=== PATIENT | female | born 1985 | race Caucasian/White ===

== ENCOUNTER → 2016-11-14 | Outpatient (CLI) | payer OTHER ==
[2016-11-14 15:21] LABS: MANUAL MICROSCOPIC REQUIRED? NO; REVIEW REQ? NO; URINE APPEARANCE CLEAR (CLEAR); URINE BILIRUBIN NEG (NEG); URINE COLOR YELLOW; URINE NITRITE NEG (NEG); UROBILINOGEN NEG (NEG)
== END | disposition home or self-care (01) ==
LOC: C.LABSPEC 13:56
PROVIDERS: ATTEND Obstetrics & Gynecology
DX: Z34.01 Encounter for supervision of normal first pregnancy, first trimester (principal)

== ENCOUNTER → 2016-11-24 | Outpatient (CLI) | payer OTHER ==
[2016-11-26 14:31] LABS: CHLAMYDIA TRACH RNA*** NOT DETECTED (NOT DETECTED); GC (NEIS GONORRHOEAE)RNA** NOT DETECTED (NOT DETECTED)
== END | disposition home or self-care (01) ==
LOC: C.LABSPEC 15:49
PROVIDERS: ATTEND Obstetrics & Gynecology
DX: Z34.01 Encounter for supervision of normal first pregnancy, first trimester (principal)

== ENCOUNTER → 2016-11-24 | Outpatient (CLI) | payer OTHER ==
[2016-11-24 14:45] LABS: BASO % 0.1 %; BASO ABS # 0.01 K/uL (0-0.2); COMPLETE YES; EOS % 0.5 %; HEMATOCRIT 35.6 % (37-47); IG% 0.2 %; LYMPH % 16.8 %; LYMPH ABS # 1.39 K/uL (1.2-3.4); MEAN CELL VOLUME 79.3 fL (80-100); MEAN CORPUSCULAR HEMOGLOBIN 27.2 pg (25-34); MEAN CORPUSCULAR HGB CONC 34.3 g/dl (32-36); MEAN PLATELET VOLUME 9.4 fL (7.4-10.4); MONO % 7.5 %; NEUT % 74.9 %; PLATELET COUNT 333 K/uL (130-400); RED BLOOD COUNT 4.49 M/uL (4.2-5.4); WHITE BLOOD COUNT 8.27 K/uL (4.8-10.8)
== END | disposition home or self-care (01) ==
LOC: C.LAB1850 13:11
PROVIDERS: ATTEND Obstetrics & Gynecology
DX: Z34.01 Encounter for supervision of normal first pregnancy, first trimester (principal)

== ENCOUNTER → 2016-11-24 | Outpatient (CLI) | payer OTHER | END | disposition home or self-care (01) | LOC: C.PAPS 17:01 | PROVIDERS: ATTEND Obstetrics & Gynecology | DX: Z34.01 Encounter for supervision of normal first pregnancy, first trimester (principal) ==

== ENCOUNTER → 2017-01-20 | Outpatient (CLI) | payer OTHER ==
[2017-01-20 12:56] LABS: THYROID STIMULATING HORMONE 0.762 uIu/ml (0.300-4.500)
== END | disposition home or self-care (01) ==
LOC: C.LAB1850 10:56
PROVIDERS: ATTEND Obstetrics & Gynecology
DX: Z34.02 Encounter for supervision of normal first pregnancy, second trimester (principal); L65.9 Nonscarring hair loss, unspecified

== ENCOUNTER → 2017-04-16 | Outpatient (CLI) | payer OTHER ==
[2017-04-16 13:08] LABS: HEMATOCRIT 31.9 % (37-47)
[2017-04-16 13:14] LABS: GTGD 50 Grams
[2017-04-16 13:58] LABS: URINE APPEARANCE CLEAR (CLEAR); URINE BILIRUBIN NEG (NEG); URINE COLOR YELLOW; URINE EPITHELIAL CELL AUTO >30 /lpf (0-5); URINE NITRITE NEG (NEG); URINE PH 6.5 (4.5-7.5); URINE SPECIFIC GRAVITY 1.018 (1.000-1.030); UROBILINOGEN NEG (NEG)
[2017-04-16 14:26] LABS: MANUAL MICROSCOPIC REQUIRED? NO; REVIEW REQ? NO
== END | disposition home or self-care (01) ==
LOC: C.LAB1850 10:47
PROVIDERS: ATTEND Obstetrics & Gynecology
DX: Z34.03 Encounter for supervision of normal first pregnancy, third trimester (principal)

== ENCOUNTER 2017-06-21 17:30 | Inpatient (IN) | payer SELFPAY ==
[~2017-06-21] VITALS: Ht 165.1 cm; Wt 75.5 kg
[2017-06-21] MEDS ORDERED: LACTATED RINGER'S 1000ML 1,000 ML IV PRN (18:24)
[2017-06-21] MEDS ORDERED: PRENTAB26 PO (18:26)
[2017-06-21] MEDS ORDERED: FERR1TAB23 (18:26)
[2017-06-21 18:27] VITALS: Ht 165.1 cm; Wt 75.5 kg
[2017-06-21] MEDS ORDERED: MISOPROSTOL 25 MCG TAB PV ONE (18:30)
[2017-06-21] MEDS ORDERED: MISOPROSTOL 25 MCG TAB ONE (18:37)
[2017-06-21 18:50] LABS: HEMATOCRIT 34.8 % (37-47); HEMOGLOBIN 11.9 g/dL (12.0-16.0); MEAN CELL VOLUME 83.7 fL (80-100); MEAN CORPUSCULAR HEMOGLOBIN 28.6 pg (25-34); MEAN CORPUSCULAR HGB CONC 34.2 g/dl (32-36); MEAN PLATELET VOLUME 10.3 fL (7.4-10.4); PLATELET COUNT 207 K/uL (130-400); RED CELL DISTRIBUTION WIDTH CV 16.2 % (11.5-14.5); RED CELL DISTRIBUTION WIDTH SD 49.3 fL (36.4-46.3); WHITE BLOOD COUNT 12.98 K/uL (4.8-10.8)
[2017-06-21] MEDS ORDERED: BUTORPHANOL TARTRATE 1 MG/ML VIAL ONE (22:32)
[2017-06-21] MEDS: LACTATED RINGER'S 1000ML 1,000 ML IV SCH (22:39)
[2017-06-21] MEDS ORDERED: BUTORPHANOL TARTRATE 1 MG/ML VIAL IV PRN (22:45)
[2017-06-22] MEDS ORDERED: EpHEDrine SULFATE INJ 50 MG/ML AMP ONE (00:17)
[2017-06-22] MEDS ORDERED: BUPIVACAINE 0.25% 30 ML VIAL ONE (00:17)
[2017-06-22] MEDS ORDERED: FENTANYL CITRATE INJ 50 MCG/1 ML 2 ML VIAL ONE (00:17)
[2017-06-22] MEDS ORDERED: FENTANYL 2MCG/ML ROPIV 1.25MG/ML 100ML BAG EPI ONE (00:18)
[2017-06-22] MEDS: LACTATED RINGER'S 1000ML 1,000 ML IV SCH ×2 (01:03→10:22)
[2017-06-22] MEDS ORDERED: LACTATED RINGER'S 1000ML 500 ML IV PRN ×2 (01:23→08:34)
[2017-06-22] MEDS ORDERED: NALOXONE HCL INJ 1 MG in SODIUM CHLORIDE 0.9% 1000ML 1,000 ML IV PRN (01:23)
[2017-06-22] MEDS ORDERED: EpHEDrine SULFATE INJ 50 MG/ML AMP IV PRN (01:30)
[2017-06-22] MEDS ORDERED: NALOXONE HCL INJ 0.4 MG/1 ML VIAL/CARP IV PRN (01:30)
[2017-06-22] MEDS ORDERED: DiphenhydrAMINE HCL 50 MG/ML VIAL IV PRN (01:30)
[2017-06-22] MEDS ORDERED: NALBUPHINE HCL INJ 10 MG/ML AMP IV PRN (01:30)
[2017-06-22] MEDS ORDERED: ONDANSETRON INJ 2 MG/ML 2 ML VIAL IV PRN (01:30)
[2017-06-22] MEDS ORDERED: OXYTOCIN 30 UNITS/500ML NSS IV ONE (06:55)
[2017-06-22] MEDS: FENTANYL 2MCG/ML ROPIV 1.25MG/ML 100ML BAG EPI PRN ×2 (06:59→07:05)
[2017-06-22] MEDS ORDERED: SODIUM CHLORIDE 0.65% NA SOLN 45 ML (OCEAN) ONE (08:06)
[2017-06-22] MEDS ORDERED: OXYTOCIN 30 UNITS/500ML NSS IV PRN ×2 (08:45→12:15)
[2017-06-22] MEDS ORDERED: BENZOCAINE 20% AER SPR 82.5 GM CAN EXT PRN (12:15)
[2017-06-22] MEDS ORDERED: SUPERCREAM 0.870 % 15GM JAR EXT PRN (12:15)
[2017-06-22] MEDS ORDERED: LANOLIN OINT EXT PRN (12:15)
[2017-06-22] MEDS ORDERED: OXYCODONE/ACETAMINOPHEN 5-325 TAB PO PRN (12:15)
[2017-06-22] MEDS ORDERED: ACETAMINOPHEN 325 MG TAB PO PRN (12:15)
--- NOTE | 2017-06-22 12:52 | Anesthesia Procedure Note ---
Anesthesia Epidural Removal Nt Date & Time Jun 22, 2017 at 12:51 Vital Signs Pain Intensity: 3.0 Notes Mental Status: alert / awake / arousable, participated in evaluation Nausea / Vomiting: adequately controlled Pain: adequately controlled Airway Patency, RR, SpO2: stable & adequate BP & HR: stable & adequate Hydration State: stable & adequate Neuraxial Anesthesia: was administered Anesthetic Complications: no major complications apparent, pt satisfied with anesthetic care Epidural: removed without complications, with tip intact
--- NOTE | 2017-06-22 13:58 | DELIVERY SUMMARY ---
DATE OF OPERATION: 06/22/2017 The patient is a 32-year-old 1, para 0 white female EDC of 07/04/2017 who represented with rupture of membranes at 0300 hours on June 22. She received one dose of Cytotec. She then had an epidural analgesia which was effective. She progressed to fully dilated and after pushing with poor maternal effort with the vertex on the perineum, vacuum was applied after the bladder had been emptied and through one push, the vertex was delivered. The posterior arm was then presenting and then that was delivered followed by the rest of the baby who was crying vigorously. The infant was placed on the mother's abdomen for further warming and evaluation. Cord was clamped and cut. The placenta was expressed intact with a 3-vessel cord. A right sulcal tear was repaired with 3-0 Chromic. A second degree perineal laceration was repaired with 3-0 Chromic in the usual fashion. Estimated blood loss was 450 mL. Mother and were doing well after the delivery. I attest to the content of the Intraoperative Record and any orders documented therein. Any exception s are noted below.
[2017-06-22] MEDS: IBUPROFEN 600 MG TAB PO PRN ×2 (14:46→22:47)
[2017-06-22 15:15] VITALS: BP 90/57; PULSE 98; TEMP 36.9
[2017-06-22] MEDS: DOCUSATE SODIUM 100 MG CAP PO SCH (20:00)
[2017-06-22 20:15] VITALS: BP 100/69; PULSE 102; TEMP 36.4
[2017-06-22 23:25] VITALS: BP 95/61; PULSE 106; TEMP 37.1
[2017-06-23 04:00] VITALS: BP 100/66; PULSE 108; TEMP 36.9
[2017-06-23 07:23] LABS: HEMATOCRIT 29.1 % (37-47); HEMOGLOBIN 9.9 g/dL (12.0-16.0)
--- NOTE | 2017-06-23 07:47 | Progress Note ---
Subjective Jun 23, 2017. Subjective conversation w/ patient, physical exam Ambulation: ambulating normally Voiding: no voiding problems Passing Gas: Yes Diet Tolerance: Regular Diet Lochia: Moderate Feeding Type: Bottle Feeding Review of Systems Constitutional: No fever, No chills, No sweats, No weight loss, No weakness, No fatigue, No problem reported Breast: No see HPI, No breast lump, No change in shape, No nipple discharge, No breast pain, No problem reported Female : No see HPI, No dysuria, No urinary frequency, No hematuria, No incontinence, No abnormal vaginal bleeding, No vaginal discharge, No problem reported Objective Vital Signs Date Time Temp Pulse Resp B/P (MAP) Pulse Ox O2 Delivery O2 Flow Rate FiO2 06/23/17 04:00 36.9 108 18 100/66 (77) Room Air 06/22/17 23:25 Room Air 06/22/17 23:25 37.1 106 18 95/61 (72) Room Air 06/22/17 20:15 36.4 102 18 100/69 (79) Room Air 06/22/17 15:15 Room Air 06/22/17 15:15 36.9 98 18 90/57 (68) Room Air Physical Exam General Appearance: WELL-APPEARING, NO APPARENT DISTRESS Abdomen: non tender, soft Fundus: Firm, Non-Tender, Relation to Umbilicus (1 below U) Extremities: no calf tenderness Laboratory Results Last 24 Hours Test 06/23/17 06:54 Hemoglobin 9.9 g/dL Hematocrit 29.1 % Assessment and Plan Day#: 1 Continue Routine Care: stable course continue current care plan.
[2017-06-23] MEDS: DOCUSATE SODIUM 100 MG CAP PO SCH ×2 (08:13→19:37)
[2017-06-23] MEDS: PRENATAL VITAMIN TAB PO SCH (08:13)
[2017-06-23 08:34] VITALS: BP 107/71; PULSE 108; TEMP 36.6; O2SAT 98
[2017-06-23 08:51] VITALS: O2SAT 98
[2017-06-23] MEDS: FERROUS SULFATE 325 MG TAB PO SCH (10:54)
[2017-06-23] MEDS: IBUPROFEN 600 MG TAB PO PRN ×2 (10:56→19:36)
[2017-06-23 15:40] VITALS: BP 97/62; PULSE 101; TEMP 37.1
[2017-06-23] MEDS ORDERED: BISACODYL 5 MG TABEC PO SCH (20:00)
[2017-06-24 00:15] VITALS: BP 121/71; PULSE 94; TEMP 36.7
[2017-06-24 08:45] VITALS: BP 123/74; PULSE 99; TEMP 36.7; O2SAT 98
[2017-06-24] MEDS: FERROUS SULFATE 325 MG TAB PO SCH (09:24)
[2017-06-24] MEDS: DOCUSATE SODIUM 100 MG CAP PO SCH (09:24)
[2017-06-24] MEDS: PRENATAL VITAMIN TAB PO SCH (09:25)
--- NOTE | 2017-06-24 09:59 | Discharge Instructions ---
Discharge Instructions Date of Service Jun 24, 2017. Admission Reason for Admission: Check Rupture Discharge Discharge Diagnosis / Problem: after delivery Discharge Goals Goal(s): Routine recovery after delivery Medications Continue Dispensed Medications: supercream, dermaplast, tucks, lansinoh Activity Recommendations Activity Limitations: as noted below ACTIVITY RECOMMENDATIONS: * Gradual return to full activity over the next 2-3 weeks. * No lifting - nothing heavier than baby over the next 2-3 weeks. * Do not engage in vigorous exercise, sexual activity or sports until cleared by your physician. * Do not drive or operate any motorized equipment until cleared by your physician. * You may shower/bathe daily. MEDICATIONS: For discomfort or pain, you may use Acetaminophen (Tylenol), Ibuprofen (Advil), or Naproxen (Aleve) following the package directions. For constipation you may use Colace following the package directions. BREAST CARE: If you are not breast feeding: * Wear a supportive bra 24 hours a day for one to two weeks. * Avoid stimulating your breasts and nipples as much as possible during the first few weeks after delivery. * When taking a shower, have the warm water hit your back, not breasts. * When your breasts feel full, apply ice packs. Usually three to four times a day helps ease the discomfort. * Take a mild pain medication (Tylenol / Motrin) when you are uncomfortable. If breast feeding: * Use breast milk to lubricate nipples. Lansinoh cream may be used for sore nipples. You do not need to remove cream prior to breast feeding. If using a different brand of cream, check the label for directions regarding removal of cream prior to nursing. * Wear a supportive bra. * If having problems with breasts or breast feeding, call a testing consultant or your health care provider. EPISIOTOMY CARE: After delivery, if you have an episiotomy (stitches), the following steps will ease discomfort and aid healing. * For the first 24 hours after delivery, place ice packs next to your episiotomy to help reduce swelling. * After the first 24 hour-period, sitz baths, either portable or in the tub, are suggested. A shower with a shower arm sprayed over the episiotomy may be comforting. * Virginie care should be done after each voiding and bowel movement. Squirt warm water from a plastic bottle over the perineum (region of the body between the anus and urinary opening) and pat dry. * Use Dermoplast to ease discomfort. Shake container. Circle directly over the episiotomy. Place a Tucks on a clean sanitary pad next to your episiotomy. SPECIAL CARE INSTRUCTIONS: When you are discharged from the hospital, it is important for you to follow the instructions listed below: * During the first week at home, you should be able to care for yourself and your baby. In addition, the usual light household activities are encouraged. * Limit your activities to the way you feel. Do not try to clean the house or move furniture. Be sensible. * If you actively engage in sports and have done so up until the time of your delivery, you may resume these activities as soon as you feel able. This may take up to one month or even longer. Use good judgment. * Continue to take your vitamins for at least six weeks after the of your baby. * Your diet need not be limited unless you were on a special diet before your delivery. Breast-feeding mothers need around 2500 calories per day and at least 64-80 ounces of fluid per day (8 to 10 glasses). * You should eat foods from the four major food groups. Crash diets or fad diets are to be avoided. Eating lean meats, fresh fruits and vegetables, low-fat dairy products, high fiber foods and a regular exercise program, will help you get back to your pre- weight without putting your health at risk. * Constipation is sometimes a problem after delivery. Take a mild laxative as needed. If breast feeding, Milk of Magnesia is acceptable to use. You may use a suppository or Fleets enema if no episiotomy. * A daily shower or tub bath is suggested. Be sure to thoroughly and gently dry the perineum. * A bloody vaginal discharge will usually continue until around four weeks post . A small amount of bleeding may continue for as long as six weeks. Vaginal discharge changes from the bright red bleeding after delivery to pink then brownish and finally yellowish-pink before becoming white and disappearing. * Bleeding may increase with activity. Your first period may come in 4-8 weeks. If you are breast feeding, your period may be delayed even longer. * [place] (sex) can begin whenever both you and your partner feel comfortable and do not have any form of genital infection. It is recommended that you wait at least six weeks for internal and external healing to occur. If you have questions, please talk to your health care practitioner. A condom should be used to prevent infection and . * Foreplay, gentle intercourse and lubrication is very important the first several times to prevent pain. A water-based lubricant such as K-Y jelly or Astroglide may be used. * If you have RH negative blood and your baby is RH positive, you will receive RHOGAM by injection prior to discharge. The nurse will give you a card to keep with you that has the date and place that you received RHOGAM after delivery. * During your care, you had a Rubella screen done to check for the presence of rubella antibodies in your blood. If your test was negative, you will receive a Rubella vaccine prior to discharge. This vaccine may cause a fever, soreness at the injection site and flu-like symptoms. If these symptoms persist, notify your health care practitioner. is not advised for one month after a Rubella vaccine. * Verbalizes understanding of car seat law as reviewed with patient nursing. * Car Seat hand-out given and reviewed with patient by nursing. * Shaken baby information reviewed with patient by nursing. Call you doctor if: * Heavy bleeding (saturating several pads an hour) or passing clots the size of your fist. * A fever >101 degrees F (38.3 degrees C) on two occasions four hours apart and /or chills. * Unusual pain in the pelvic or vaginal areas. * "Baby Blues" lasting longer than two weeks. If you have any questions or concerns, call your health care practitioner at . FOLLOW UP VISIT: * Please call the office at to schedule a 6 week examination. It is important you keep this appointment. It is important for you to make arrangements for either yearly or twice yearly check-ups thereafter. . Current Hospital Diet Patient's current hospital diet: Vegetarian Diet Discharge Diet Recommended Diet: Regular Diet Pending Studies Studies pending at discharge: no Medical Emergencies . Who to Call and When: Medical Emergencies: If at any time you feel your situation is an emergency, please call 911 immediately. . Non-Emergent Contact Non-Emergency issues call your: Hotbed Lever Operator . . "Provider Documentation" section prepared by Zahra Alexander. .
--- NOTE | 2017-06-24 11:10 | OB/GYN Progress Note ---
[facility] Progress Note Date of Service Jun 24, 2017. Subjective conversation w/ patient, physical exam Ambulation: ambulating normally Voiding: no voiding problems Passing Gas: Yes Diet Tolerance: Regular Diet Lochia: Moderate Feeding Type: Breast Feeding Pain: controlled Review of Systems Constitutional: No problem reported Respiratory: No problem reported Cardiac: No problem reported Breast: No problem reported Abdomen: No problem reported Female : No problem reported Objective Vital Signs Date Time Temp Pulse Resp B/P (MAP) Pulse Ox O2 Delivery O2 Flow Rate FiO2 06/24/17 08:45 36.7 99 16 123/74 (90) 98 Room Air 06/24/17 08:45 Room Air 06/24/17 00:15 36.7 94 16 121/71 (88) 06/23/17 15:40 37.1 101 18 97/62 (74) Room Air 06/23/17 15:40 Room Air Physical Exam General Appearance: WELL-APPEARING, NO APPARENT DISTRESS Respiratory/Chest: no respiratory distress Cardiovascular: regular rate, rhythm Abdomen: non tender, soft Fundus: Firm Extremities: normal inspection Assessment and Plan Post- Day Number: 2 Continue Routine Care: PPD#2 doing well. Discharge instructions discussed. When I went into room for rounding, Patient was sleeping in bed with baby sleeping upon her chest. I discussed with patient that this is not safe for baby - that if mom is sleepy, she needs to put the baby into bassinet. Patient voices understanding. I asked patient's RN to also reinforce this safe sleep education with her.
[2017-06-24] MEDS: IBUPROFEN 600 MG TAB PO PRN (13:47)
[2017-06-24 14:10] VITALS: BP_DIAS 74; PULSE 99; TEMP 36.7
--- NOTE | 2017-06-28 16:12 | DISCHARGE SUMMARY ---
HISTORY OF PRESENT ILLNESS: The patient is a 32-year-old 1, para 0 white female who presented with rupture of membranes at approximately 0300 hours on June 22. She received Cytotec to stimulate labor. She then progressed to full dilation under epidural analgesia. There was a poor maternal effort with pushing because the patient was complaining of severe back pain when pushing. She managed to bring the vertex to the perineum. The vacuum was applied and the was delivered easily with 1 pull on the vacuum. The rest of the infant delivered easily and was placed on mother's abdomen for further attention and stimulation. The patient had an uncomplicated course. She was eating regular food on her later that day, ambulating without difficulty, voiding without difficulty. She was sent home in good condition with the usual postop instructions.
== END 2017-06-24 14:10 | disposition home or self-care (01) | DRG 775 ==
LOC: C.LD 17:30 → C.OPB 17:30 → C.LD 06-22 12:25 → C.OBG 06-22 15:59
PROVIDERS: ADMIT Obstetrics & Gynecology; ATTEND Obstetrics & Gynecology
PROC: 10D07Z6 Extraction of Products of Conception, Vacuum, Via Natural or Artificial Opening (ICD-10-PCS; principal; 2017-06-22)
DX: O70.1 Second degree perineal laceration during delivery (principal); Z3A.38 38 weeks gestation of pregnancy; Z37.0 Single live birth

== ENCOUNTER 2019-04-01 16:46 | Inpatient (IN) ==
[2019-04-01] MEDS ORDERED: ONDANSETRON INJ 2 MG/ML 2 ML VIAL IV PRN ×2 (17:25→18:46)
[2019-04-01] MEDS ORDERED: OXYTOCIN 30 UNITS/500 ML BAG IV PRN ×3 (17:25→22:08)
[2019-04-01] MEDS ORDERED: ACETAMINOPHEN 325 MG TAB PO PRN ×2 (17:25→22:08)
[2019-04-01] MEDS ORDERED: ALUMINUM/MAGNESIUM/SIMETH (MAALOX MAX) 30 ML UDC PO PRN (17:25)
--- NOTE | 2019-04-01 17:35 | Labor Progress Brief Note ---
Date of Service April 01, 2019 Subjective Review of Systems All systems reviewed & are unremarkable except as noted in HPI & below Assessment & Plan (1) Amniotic fluid leaking: Admit, augment labor as water broke at 0700 per patient and no painful contractions have started yet. Epidural on request. Present on Admission?: Yes Physical Exam Constitutional: WD/WN, vitals as above Eyes: PERRL, conjunctivae normal, anicteric sclerae ENMT: external ear and nose normal, oropharynx normal Neck: supple Respiratory: normal respiratory effort and able to speak in complete sent ences; no respiratory distress Cardiovascular: Rate/Rhythm: regular rate and regular rhythm Gastrointestinal (Abdomen): Gravid / AGA, nontender Musculoskeletal: no cyanosis or clubbing, extremities motor strength 5/5 Skin: no rashes, warm and dry Neurologic: patellar DTR's 2+ bilat, sensation intact Psychiatric: A+Ox3, euthymic affect Genitourinary: Speculum/Bimanual Exam: no vaginal lesions, no vaginal bleeding and uterus nontender OB Exam Abdomen: + vertex, + estimated weight (7) and + regular contractions (not appreciated by patient) Manual OB Exam: + cervical dilation 4 cm, + cervical effacement 50%, + station -2 and + amniotic fluid (+pool on sse) clear, nitrazine positive and ferning present OB Exam Monitor Tracing: + external FHT monitor used, + external uterine monitor used and + category I Lymphatic: no cervical or axillary lymphadenopathy Results & Data Vital Signs (Past 12 Hours) Vital Signs Temp Pulse Resp BP 04/01/19 17:15 20 04/01/19 17:03 98.8 F 20 04/01/19 16:54 97 H 115/64
[2019-04-01] MEDS: LACTATED RINGER'S 1,000 ML IV PRN ×2 (17:55→18:48)
[2019-04-01 17:56] LABS: Hemoglobin 11.5 g/dL (12.0-16.0); Mean Corpuscular Hemoglobin 27.1 pg (25-34); Mean Corpuscular Volume 82.4 fL (80-100); Mean Platelet Volume 10.5 fL (7.4-10.4); Platelet Count 267 K/uL (130-400); RDW Coefficient of Variation 15.1 % (11.5-14.5); Red Blood Count 4.25 M/uL (4.2-5.4); White Blood Count 13.31 K/uL (4.8-10.8)
[2019-04-01 18:01] LABS: Mean Corpuscular Hgb Conc 32.9 g/dL (32-36)
[2019-04-01] MEDS ORDERED: fentaNYL citrate 100 MCG/2 ML VIAL ONE (18:12)
[2019-04-01] MEDS ORDERED: fentaNYL 2MCG/ML ROPIV 1.25MG/ML 100 ML BAG EPI ONE (18:13)
[2019-04-01] MEDS ORDERED: BUPIVACAINE 0.25% 30 ML VIAL ONE (18:13)
[2019-04-01] MEDS ORDERED: ePHEDrine sulfate 50 MG/ML AMP ONE (18:13)
[2019-04-01 18:23] LABS: Albumin Level 2.6 gm/dl (3.4-5.0); BUN Creatinine Ratio 11.6 (10-20); Calcium 9.1 mg/dl (8.5-10.1); Creatinine Clr Calc Pharmacy 175.7 ml/min; Est GFR (African American) 148.3; Potassium 3.8 mmol/L (3.5-5.1)
[2019-04-01 18:29] LABS: Albumin Globulin Ratio 0.6 (0.9-2); Bilirubin,Total 0.2 mg/dl (0.2-1); Globulin 4.5 gm/dl (2.5-4.0); Total Protein 7.1 gm/dl (6.4-8.2)
[2019-04-01] MEDS ORDERED: fentaNYL 2MCG/ML ROPIV 1.25MG/ML 100 ML BAG EPI PRN (18:46)
[2019-04-01] MEDS ORDERED: NALOXONE HCL 0.4 MG/1 ML VIAL/CARP IV PRN (18:46)
[2019-04-01] MEDS ORDERED: NALBUPHINE HCL INJ 10 MG/ML AMP IV PRN (18:46)
[2019-04-01] MEDS ORDERED: NALOXONE HCL 1 MG in SODIUM CHLORIDE 0.9% 1000ML 1,000 ML IV PRN (18:46)
[2019-04-01] MEDS ORDERED: ePHEDrine sulfate 50 MG/ML AMP IV PRN (18:46)
[2019-04-01] MEDS ORDERED: DiphenhydrAMINE HCL 50 MG/ML VIAL IV PRN (18:46)
--- NOTE | 2019-04-01 18:48 | Anesthesiology Consultation ---
Date of Service April 01, 2019 Assessment & Plan (1) Encounter for pre-operative examination: Chart Review Chart Review: Patient NOT seen in Pre Admission Testing and Acceptable Risk for Labor Epidural Consults Requested none History Height/Weight Height: 5 ft 6.93 in Weight: 74.389 kg Allergies Allergy/AdvReac Type Severity Reaction Status Date / Time No Known Drug Allergies Allergy Verified 03/31/19 13:02 Medications Home Medications Medication Instructions Recorded Confirmed Last Taken prenat.vits,hiren,yge-fqiy-avxsf 1 tab PO DAILY 11/19/18 04/01/19 1 Day Ago ~03/31/19 Active Medications Generic Name Dose Route Start Last Admin Trade Name Freq PRN Reason Stop Dose Admin Lactated Ringer's 1,000 mls @ 125 mls/hr 04/01/19 18:00 04/01/19 18:48 Lr IV 04/03/19 17:59 125 mls/hr .Q8H PRN Administration L&D Protocol Protocol Past Medical History Medical History Amniotic fluid leaking Anxiety Gastritis Normal labor and delivery (Acute) Supervision of elderly multigravida (Acute) Exercise / Class Metabolic Activity II 4-5 Yardwork/Stairs/Walk up hill Past Family History Family History Father Type B viral hepatitis Past Surgical History Surgical History No pertinent past surgical history Past Anesthesia History No Hx of Anesthesia Complications and No Family Hx of Anesthesia Complications History of PONV No Hx of PONV and No Hx of Motion Sickness Social History Smoking Status: Never smoker Do You Dip or Chew Tobacco: No Hx Alcohol Use: No Hx Substance Use: No substance use type: does not use Physical Exam Vital Signs Last Vital Signs Temp 37.1 C 04/01/19 17:03 Pulse 84 04/01/19 18:42 Resp 18 04/01/19 18:00 BP 115/64 04/01/19 16:54 Pulse Ox 100 04/01/19 18:42 Testing Laboratory Results 04/01/19 17:41 04/01/19 17:41
[2019-04-01] MEDS ORDERED: Nursing to Pharmacy Communication ONE (21:01)
--- NOTE | 2019-04-01 22:01 | Delivery Summary ---
Vaginal Delivery Summary Date of Service April 01, 2019 Vaginal Delivery Summary DIAGNOSES: 1. Alaniz intrauterine at 40wk gestation. 2. PROM and IOL. 3. Group B Streptococcus Neg. PROCEDURE: Spontaneous vaginal delivery without laceration. SURGEON: Tran Alcantara MD. RIDE ASSEMBLY SUPERVISOR: None. ESTIMATED BLOOD LOSS: 300 mL. COMPLICATIONS: None. PLACENTA: Spontaneous and intact with a 3-vessel cord. DISPOSITION: Stable to labor and delivery. DESCRIPTION: The patient pushed well and brought the head to . The 's head was allowed to deliver with contraction force and no further active pushing, with the perineum protected during this time. The shoulders delivered easily with a maternal pushing effort. There was a tight nuchal cord reduced at the perineum. The Right shoulder was anterior and the left hand was compound at delivery alongside the left cheek. The shoulders and body delivered without any difficulty, and the was placed on the maternal abdomen. It was vigorous and moving all extremities, and making respiratory efforts. The cord was doubly clamped by the MD and then cut by the FOB. The placenta delivered spontaneously and was noted to be intact and with a 3VC. The cervix, vagina and perineum were examined and were found to be without defect requiring repair. The fundus was firm and lochia minimal immediately after delivery.
[2019-04-01] MEDS ORDERED: SUPERCREAM 0.870% 15 GM JAR EXT PRN (22:08)
[2019-04-01] MEDS ORDERED: OXYCODONE/ACETAMINOPHEN 5mg/325mg TAB PO PRN (22:08)
[2019-04-01] MEDS ORDERED: DIPHTHERIA/TETANUS/PERTUSSIS 0.5 ML SYR/VIAL IM ONE (22:08)
[2019-04-01] MEDS ORDERED: HYDROCORTISONE ACETATE 25 MG SUPP PR PRN (22:08)
[2019-04-01] MEDS ORDERED: LACTATED RINGER'S 1,000 ML IV SCH (22:08)
[2019-04-01] MEDS ORDERED: BENZOCAINE 20% AER SPR 82.5 GM CAN EXT PRN (22:08)
--- NOTE | 2019-04-01 23:17 | Anesthesia Procedure Note ---
Date of Service April 01, 2019 Anesthesia Post Epidural Note Vital Signs Vital Signs: Temp Pulse Resp BP Pulse Ox 36.9 C 99 H 18 111/61 100 04/01/19 21:51 04/01/19 23:08 04/01/19 22:36 04/01/19 23:08 04/01/19 21:48 Notes Mental Status: alert / awake / arousable and participated in evaluation Patient Amnestic to Procedure: No Nausea / Vomiting: adequately controlled Pain: adequately controlled Airway Patency, RR, SpO2: stable & adequate BP & HR: stable & adequate Hydration State: stable & adequate Neuraxial Anesthesia: was administered and sensory block is resolving Anesthetic Complications: no major complications apparent and Pt Satisfied with anesthetic care Epidural: Removed without complications and With tip intact
[2019-04-02] MEDS: IBUPROFEN 600 MG TAB PO PRN ×2 (01:38→05:48)
--- NOTE | 2019-04-02 06:40 | Obstetrical Progress Note ---
Date of Service <Rebel Goel MD - Last Filed: 04/02/19 06:40> April 02, 2019 Assessment & Plan <Rebel Goel MD - Last Filed: 04/02/19 06:40> (1) : PPD#1 doing well, ambulating well, tolerating meals continue routine care until discharge after discharge will have follow-up in 6 weeks Subjective <Rebel Goel MD - Last Filed: 04/02/19 06:40> Ms. Ansley Pedersen is a 34 y/o female ; PPD #1 following spontaneous vaginal delivery at 40 weeks; doing well this morning; having minimal abdominal cramping/pain; voiding well; tolerating meals overnight; and able to ambulate some; some persistent spotting with intermittent improvement this morning. Review of Systems Constitutional: denies fever; chills; sweats; headache Respiratory: denies shortness of breath, difficulty breathing Cardiac: denies chest pain; palpitations; chest pressure Breast: denies breast pain : denies dysuria Physical Exam <Rebel Goel MD - Last Filed: 04/02/19 06:40> General: alert; oriented; no acute distress Cardiac: RRR; no m/g/r Respiratory: CTAB a/p; no wheezes/rales/rhonchi; no increased work of breathing; symmetrical chest rise; no respiratory distress Abdomen: soft; NT/ND; bowel sounds positive Uterus: uterine fundus firm; palpable 1cm below umbilicus Lower extrem: no lower extremity edema or swelling; no deep calf pain; Ruy's sign negative b/l Results & Data <Rebel Goel MD - Last Filed: 04/02/19 06:40> Vital Signs (Past 12 Hours) Vital Signs Temp Pulse Resp BP Pulse Ox 04/02/19 04:30 36.9 C 77 20 110/77 98 04/02/19 00:08 109 H 140/63 04/01/19 23:53 113 H 94/61 L 04/01/19 23:38 100 H 18 117/63 04/01/19 23:08 99 H 18 111/61 04/01/19 22:53 93 H 107/60 04/01/19 22:38 100 H 109/62 04/01/19 22:36 18 12/06/19 22:23 96 H 106/75 12/06/19 22:21 20 04/01/19 22:08 100 H 103/65 04/01/19 22:06 18 04/01/19 21:51 36.9 C 94 H 20 124/56 L 04/01/19 21:48 92 H 100 04/01/19 21:45 95 H 132/78 04/01/19 21:43 118 H 98 04/01/19 21:41 102 H 91 04/01/19 21:38 73 100 04/01/19 21:33 109 H 98 04/01/19 21:28 73 99 04/01/19 21:27 86 91 04/01/19 21:23 77 100 04/01/19 21:22 89 86 L 04/01/19 21:17 97 H 100 04/01/19 21:15 86 109/65 04/01/19 21:12 76 100 04/01/19 21:07 76 100 04/01/19 21:04 77 109/57 L 04/01/19 21:02 74 100 04/01/19 21:00 20 04/01/19 20:57 80 100 04/01/19 20:52 74 97 04/01/19 20:47 80 100 04/01/19 20:45 76 115/80 04/01/19 20:42 86 97 04/01/19 20:37 92 H 97 04/01/19 20:32 80 97 04/01/19 20:30 82 20 121/77 04/01/19 20:27 85 98 04/01/19 20:22 78 97 04/01/19 20:17 74 100 04/01/19 20:15 81 116/65 04/01/19 20:12 97 H 99 04/01/19 20:07 80 99 04/01/19 20:02 80 111/61 99 04/01/19 19:57 81 98 04/01/19 19:52 77 99 04/01/19 19:47 85 100 04/01/19 19:46 83 109/61 04/01/19 19:42 74 99 04/01/19 19:37 79 99 04/01/19 19:32 82 99 04/01/19 19:30 20 04/01/19 19:29 75 107/60 04/01/19 19:27 93 H 98 04/01/19 19:22 87 98 04/01/19 19:17 89 99 04/01/19 19:15 18 04/01/19 19:14 80 120/69 04/01/19 19:12 93 H 115/67 99 04/01/19 19:10 88 118/68 04/01/19 19:08 103 H 123/67 04/01/19 19:07 95 H 99 04/01/19 19:06 91 H 133/63 04/01/19 19:02 92 H 100 04/01/19 19:01 89 117/70 04/01/19 19:00 84 117/63 04/01/19 18:57 98 H 100 04/01/19 18:52 108 H 100 04/01/19 18:51 91 H 118/75 04/01/19 18:47 84 100 04/01/19 18:42 84 100 Laboratory Results 04/01/19 04/01/19 Range/Units 17:41 17:41 WBC 13.31 H (4.8-10.8) K/uL RBC 4.25 (4.2-5.4) M/uL Hgb 11.5 L (12.0-16.0) g/dL Hct 35.0 L (37-47) % MCV 82.4 (80-100) fL MCH 27.1 (25-34) pg MCHC 32.9 (32-36) g/dL RDW Std Deviation 45.0 (36.4-46.3) fL RDW Coeff of Renetta 15.1 H (11.5-14.5) % Plt Count 267 (130-400) K/uL MPV 10.5 H (7.4-10.4) fL Sodium 136 (136-145) mmol/L Potassium 3.8 (3.5-5.1) mmol/L Chloride 106 (98-107) mmol/L Carbon Dioxide 22 (21-32) mmol/L Anion Gap 7.0 (3-11) BUN 5 L (7-18) mg/dl Creatinine 0.47 L (0.6-1.2) mg/dl Est Cr Clr Drug Dosing 175.7 ml/min Est GFR ( Amer) 148.3 Est GFR (Non-Af Amer) 128.0 BUN/Creatinine Ratio 11.6 (10-20) Glucose 91 (70-99) mg/dl Calcium 9.1 (8.5-10.1) mg/dl Total Bilirubin 0.2 (0.2-1) mg/dl AST 15 (15-37) U/L ALT 17 (12-78) U/L Alkaline Phosphatase 165 H (45-117) U/L Total Protein 7.1 (6.4-8.2) gm/dl Albumin 2.6 L (3.4-5.0) gm/dl Globulin 4.5 H (2.5-4.0) gm/dl Albumin/Globulin Ratio 0.6 L (0.9-2) Medications Administered Current Inpatient Medications Acetaminophen (Tylenol) 650 mg PO Q6H PRN PRN Reason: Pain/BRADSHAW/Fever Stop: 05/01/19 22:07 Benzocaine (Dermoplast Pain Relieving [place]) 1 appln EXT PRN PRN PRN Reason: Perineal Discomfort Stop: 05/01/19 22:07 Last Admin: 04/02/19 04:33 Dose: 82.5 appln Documented by: Cocaine HCl (Supercream 0.870%) 1 gm EXT BID PRN PRN Reason: Hemorrhoidal Inflammation Stop: 04/15/19 22:07 Docusate Sodium (Colace) 100 mg PO DAILY@08, [facility] Stop: 05/02/19 07:59 Hydrocortisone (Anusol Hc) 25 mg RI BID PRN PRN Reason: Hemorrhoidal Inflammation Stop: 05/01/19 22:07 Oxytocin (Pitocin) 30 units in 500 mls @ 333.333 mls/hr IV .Q1H30M PRN; Protocol PRN Reason: Bleeding Control Stop: 05/01/19 22:07 Lactated Ringer's (Lr) 1,000 mls @ 125 mls/hr IV .Q8H [facility] Stop: 05/01/19 22:07 Ibuprofen (Motrin) 600 mg PO Q4H PRN PRN Reason: Pain/BRADSHAW/Cramping/Fever Stop: 05/01/19 22:07 Last Admin: 04/02/19 05:48 Dose: 600 mg Documented by: Oxycodone/Acetaminophen (Percocet 5mg/325mg) 1 tab PO Q4H PRN PRN Reason: Pain not relieved by... Stop: 04/15/19 22:07 Prenat Multivit/[place]/Iron/Folic Ac ( Vitamin) 1 tab PO DAILY@08 [facility] Stop: 05/02/19 07:59 <Tran Alcantara MD - Last Filed: 04/02/19 08:09> Co-Signing Physician Notes I have reviewed the resident's note and examined the patient myself, and agree with the note above. Resident Activity Tracking <Rebel Goel MD - Last Filed: 04/02/19 06:40> Resident Involvement: Resident Care Provided Care Provided: OB Delivery
[2019-04-02] MEDS: DOCUSATE SODIUM 100 MG CAP PO SCH ×2 (08:47→21:30)
[2019-04-02] MEDS: PRENATAL VITAMIN 1 TAB PO SCH (08:47)
[2019-04-02 09:40] LABS: Hematocrit (blood only) 31.5 % (37-47); Hemoglobin 10.3 g/dL (12.0-16.0); Mean Corpuscular Hemoglobin 27.3 pg (25-34); Mean Corpuscular Hgb Conc 32.7 g/dL (32-36); Mean Corpuscular Volume 83.6 fL (80-100); Platelet Count 251 K/uL (130-400); RDW Coefficient of Variation 15.1 % (11.5-14.5); RDW Standard Deviation 46.2 fL (36.4-46.3); Red Blood Count 3.77 M/uL (4.2-5.4); White Blood Count 13.94 K/uL (4.8-10.8)
[2019-04-03 06:24] LABS: Hemoglobin 9.3 g/dL (12.0-16.0)
[2019-04-03] MEDS: DOCUSATE SODIUM 100 MG CAP PO SCH ×2 (08:41→21:32)
[2019-04-03] MEDS: PRENATAL VITAMIN 1 TAB PO SCH (08:41)
--- NOTE | 2019-04-03 10:02 | Obstetrical Progress Note ---
Date of Service April 03, 2019 Assessment & Plan (1) Vaginal delivery: Doing well. Plan d/c today. Instructions given. Can nest if baby stays. Day #:: 2 Subjective Ambulation: ambulating normally Voiding: no voiding problems Passing Gas:: Yes Diet Tolerance:: regular diet (no n/v) Lochia:: Small Feeding Type:: breast feeding Nursing notes patient seems very anxious. Patient notes she is feeling physically well but worried about the baby and jaundice. Physical Exam Constitutional WD/WN, vitals as above Gastrointestinal (Abdomen) soft, nt, nd ff/nt at u Psychiatric A+Ox3, euthymic affect Results & Data Vital Signs (Past 12 Hours) Vital Signs Temp Pulse Resp BP Pulse Ox 04/03/19 08:03 36.9 C 90 16 111/70 04/02/19 23:35 36.7 C 81 17 107/68 97
--- NOTE | 2019-04-03 16:06 | Communication Note ---
Date of Service: April 03, 2019 Notified by nursing that the patient's behavior and mood has continued to deteroirate all day. She is acting bizarely and obsessively about the perceived issues with the baby. Nursing is very concerned that she is not going to handle things well at home. she refuses to sleep and has not slept in greater than 24 hours. she is very anxious. I have ordered a psych consult.
--- NOTE | 2019-04-03 17:01 | Communication Note ---
Date of Service: April 03, 2019 We have been notified that unless this is a dire emergency, ie the patient is suicidal, that there is no one available from psychiatic services that can see the patient tonight. Given the concern from nursing and myself regarding this patient, will d/c her discharge order and observe overnight so psych can then see her in the morning tomorrow. Will really try to encourage the patient to get some rest overnight and have her evaluated tomorrow.
--- NOTE | 2019-04-04 06:09 | Obstetrical Progress Note ---
Date of Service <Rebel Goel MD - Last Filed: 04/04/19 06:50> April 04, 2019 Assessment & Plan <Rebel Goel MD - Last Filed: 04/04/19 06:50> (1) : PPD#3 doing well, ambulating well, tolerating meals awaiting psych to see patient before discharge for assessment patient's changes in sleep and excessive worry over the weekend after discharge will have follow-up in 6 weeks Subjective <Rebel Goel MD - Last Filed: 04/04/19 06:50> Ms. Ansley Pedersen is a 34 y/o female ; PPD #3 following spontaneous vaginal delivery at 40 weeks; feels well this morning, felt like she got a good amount of sleep last night with the baby at photo therapy; has been able to pump without problem and feedings have all gone well; does not feel any excessive wo rry about how the baby is going to do Review of Systems Constitutional: denies fever; chills; sweats; headache Respiratory: denies shortness of breath, difficulty breathing Cardiac: denies chest pain; palpitations; chest pressure Breast: denies breast pain : denies dysuria Physical Exam <Rebel Goel MD - Last Filed: 04/04/19 06:50> General: alert; oriented; no acute distress Cardiac: RRR; no m/g/r Respiratory: CTAB a/p; no wheezes/rales/rhonchi; no increased work of breathing; symmetrical chest rise; no respiratory distress Abdomen: soft; NT/ND; bowel sounds positive Uterus: uterine fundus firm; palpable 4cm below umbilicus Lower extrem: no lower extremity edema or swelling; no deep calf pain; Ruy's sign negative b/l Results & Data <Rebel Goel MD - Last Filed: 04/04/19 06:50> Vital Signs (Past 12 Hours) Vital Signs Temp Pulse Resp BP Pulse Ox 04/03/19 23:10 36.9 C 78 16 109/73 98 04/03/19 19:35 37.0 C 87 18 116/75 Laboratory Results 04/03/19 Range/Units 05:47 Hgb 9.3 L (12.0-16.0) g/dL Hct 29.0 L (37-47) % Medications Administered Current Inpatient Medications Acetaminophen (Tylenol) 650 mg PO Q6H PRN PRN Reason: Pain/BRADSHAW/Fever Stop: 05/01/19 22:07 Benzocaine (Dermoplast Pain Relieving [place]) 1 appln EXT PRN PRN PRN Reason: Perineal Discomfort Stop: 05/01/19 22:07 Last Admin: 04/02/19 04:33 Dose: 82.5 appln Documented by: Cocaine HCl (Supercream 0.870%) 1 gm EXT BID PRN PRN Reason: Hemorrhoidal Inflammation Stop: 04/15/19 22:07 Docusate Sodium (Colace) 100 mg PO DAILY@08,21 [facility] Stop: 05/02/19 07:59 Last Admin: 04/03/19 21:32 Dose: 100 mg Documented by: Hydrocortisone (Anusol Hc) 25 mg [place] BID PRN PRN Reason: Hemorrhoidal Inflammation Stop: 05/01/19 22:07 Oxytocin (Pitocin) 30 units in 500 mls @ 333.333 mls/hr IV .Q1H30M PRN; Pro tocol PRN Reason: Bleeding Control Stop: 05/01/19 22:07 Lactated Ringer's (Lr) 1,000 mls @ 125 mls/hr IV .Q8H [facility]UANJOSE Stop: 05/01/19 22:07 Ibuprofen (Motrin) 600 mg PO Q4H PRN PRN Reason: Pain/BRADSHAW/Cramping/Fever Stop: 05/01/19 22:07 Last Admin: 04/02/19 05:48 Dose: 600 mg Documented by: Oxycodone/Acetaminophen (Percocet 5mg/325mg) 1 tab PO Q4H PRN PRN Reason: Pain not relieved by... Stop: 04/15/19 22:07 Prenat Multivit/[place]/Iron/Folic Ac ( Vitamin) 1 tab PO DAILY@08 [facility] Stop: 05/02/19 07:59 Last Admin: 04/03/19 08:41 Dose: 1 tab Documented by: <Yancy Watts MD, FACOG - Last Filed: 04/04/19 08:28> Co-Signing Physician Notes Resident Physician Supervision Note: I interviewed and examined the patient. Discussed with Dr. Goel and agree with findings and plan as documented in the note. Any exceptions or clarifications are listed here: Patient notes she is feeling better this am. She feels yesterday was a bit of a misunderstanding. She felt she was not getting good information about her daughter's condition from the nurses. She was able to get some sleep last night when baby under the lights. She continues to be a bit obsessive about the baby, marycarmen in light of what happened to her previous son, but does seem less anxious. Tried to explain to the patient why we thought we needed to get psych involved: anxiety seemingly escessive for the situation, lack of sleep and refusal to sleep, seemingly obsessive thoughts, pacing. will await visit from psych so they can provide her with resources should she need assistance. then plan d/c home. f/u with me in the office on thu or next week. Documented By: Yancy Watts MD, FACOG Resident Activity Tracking <Rebel Goel MD - Last Filed: 04/04/19 06:50> Resident Involvement: Resident Care Provided Care Provided: OB Delivery
[2019-04-04] MEDS: PRENATAL VITAMIN 1 TAB PO SCH (08:43)
[2019-04-04] MEDS: DOCUSATE SODIUM 100 MG CAP PO SCH (08:43)
--- NOTE | 2019-04-04 09:28 | Psychiatric Consultation ---
Date of Consultation April 04, 2019 Impression / Recommendations Impression 34-year-old female admitted to L&D for spontaneous vaginal delivery at 40 weeks gestation. Patient delivered an infant male on 04/01/2019. Psychiatric consultation was requested to evaluate the patient for anxiety" obsessive behavior." As additional history was provided, it appears that patient was specifically concerned about possibility of hyperbilirubinemia. It is reported that patient had the same concern shortly after the delivery of her first child, resulting in a visit to the emergency room with elevated bilirubin and need for phototherapy. Patient has verbalized to multiple providers that she believes the situation was "a misunderstanding", and stating she wanted to "prevent" any concerns with her second child. Patient does admit to improvement in the severity of anxiety after her infant son received phototherapy. She indicates she has been sleeping better now that these concerns have been addressed. Reviewed other signs and symptoms of anxiety, which patient felt were not overwhelming at this time. Patient denies suicidal ideation, as well as thoughts to harm , 2-year-old, or her . Patient denies any safety concerns within the home, and states she is "happy with my family." She reports feeling supported by her . Patient denies any concerns related to bonding with her , and feels prepared to manage the infant's needs in this period. Patient states she is not interested in medications to calm anxiety, especially as she feels discussion about the perceived misunderstanding has resulted in reduction of symptoms. Patient does minimize some of the behavior noticed by nursing staff yesterday, stating "I might have been shivering because it is cold when you are not under the blankets." At time of evaluation, patient does not display any noticeable compulsive behaviors. She is not seem to be perseverating on any specific concerns at time of psychiatric evaluation. Patient was encouraged to establish care with a family doctor, for ongoing monitoring of symptoms of anxiety and depression. She does admit to a follow-up appointment with her LOOM INSPECTOR in 1 week. We reviewed signs and symptoms of depression and anxiety, and patient was encouraged to reach out to her outpatient providers should any of these occur. Patient was also provided with a booklet listing mental health services in our area. She accepted this booklet and denied any additional needs or concerns. No further recommendations at this time. We appreciate the opportunity to participate in the care of this patient. Dr. Mary Kay Luong was directly involved in review and discussion of the patient's case and participated in medical decision making regarding treatment recommendations. Psych History Identifying Data 34-year-old female admitted for spontaneous vaginal delivery of an male, her second child. Documentation suggests patient had been requesting treatment for hyperbilirubinemia, but informed there was not present indication. Pt concerns were discussed, and decision was made to provide phototherapy to the . Psychiatric consultation was requested due to concern for anxiety and "obsessive behaviors" observed while the above questions were being addressed. Information is gathered from hospital documentation and the patient herself - the combination of which is considered to be reliable. Chief Complaint "Good. I'm am doing good. Better now." History of Present Illness Marisa Pedersen is a 34-year-old female admitted to Labor & Delivery for spontaneous vaginal delivery of her second child. Pt gave naturally to an son on 04/01/19. Psychiatric consultation was requested to address elevated anxiety levels and reports of "obsessive behavior", related to patient's requests for treatment of her infant for hyperbilirubinemia, with reports the treatment was not necessarily indicated for her at this time. It is reported the patient had been observed to be pacing and shaking, demonstrating preoccupation with requests that her receive phototherapy. The situation was addressed between the patient and pediatric team in order to discuss her concerns, and decision was made to pursue phototherapy at patient's request. Psychiatric consultation remain in place to follow-up on reports of anxiety. Patient's case was reviewed and discussed with psychiatric nurse liaison and supervising psychiatrist. Patient was cooperative with psychiatric evaluation this morning. Patient informs this provider that she is feeling "better now" after her concerns were discussed more thoroughly. Pt does admit she believes the situation was "a misunderstanding", and that she is feeling more comfortable with the decisions being made after reviewing with a potato inspector. Patient informs this provider that she had difficulty with her first delivery. She states that at that time, she did not feel comfortable with being discharged due to concerns for the baby's health. She states her first child did not initially present with concerns for hyperbilirubinemia, but had to be brought back to the ED due to difficulty feeding, eating, and inability to be calmed. It was at that point that her first child was treated with phototherapy. Pt tells this provider, "it was a nightmare for me, I told them I didn't think we should go home yet." Pt states her concern with her second-born has stemmed from a place of "thinking we would prevent the issue this time." Pt states that she has a better understanding of the situation now, and is far less worried. Pt denies specific anxiety related to any other present situations. She believes that her worry has now been addressed and resolved. She does report mild generalized anxiety, as it relates to returning home from hospital with her . She denies any behaviors that she believes to be related to the presence of anxiety. When asked about the pacing, she states "I was just walking" and when asked about shaking, she states "it is cold here when you are not under the blankets." It is possible that patient may be minimizing her symptoms of anxiety; however, she denies concern related to her ability to care for the needs of herself and her children with her current symptoms. Patient does admit to difficulty sleeping when she had been more anxious. She states that she was able to get several hours of sleep last evening, and is feeling "much better today." Patient states her is supportive, and is currently caring for her older child. She denies any suicidal ideation, or history thereo f. She denies any thoughts or considerations to harm herself, her children, or her . Patient admits to feeling safe within her home, and supported by her . She believes that she and her baby are bonding well, and denies concern related to ability to care for her 's needs. Patient recalls being asked about depression and anxiety during follow-up pediatric appointments. She was cooperative with review of signs and symptoms of these conditions. Patient states she is scheduled to follow-up with her LOOM INSPECTOR in 1 week. She denies having a family doctor presently, and tolerated review of recommendation to establish care. Patient currently does not feel that medications for anxiety are necessary, and is not interested in discussing the topic further. She was provided with a booklet containing contact information for mental health services in the area, should a need arise. Pt denies other needs or concerns, or specific requests for our service. Past Psychiatric History Previous Psych History: Pt reports prior psychiatric "consultation" several years ago while living in [place]. States she was prescribed medication for anxiety, which she took for 1 month, then discontinued as reportedly found it ineffective and felt it was unnecessary. Patient denies history of outpatient therapy. No reported history of anxiety, depression, or psychosis after her first child was born. Outpatient Services: None Previous Psych Admissions: Denies History of Previous Suicide Attempt: No Past Medication Trials: One prior "daily anxiety medication" trial - took for 1 month before discontinuing; unable to recall medication name Allergies Allergy/AdvReac Type Severity Reaction Status Date / Time No Known Drug Allergies Allergy Verified 03/31/19 13:02 Home Medications Home Medications Medication Instructions Recorded Confirmed Type prenat.vits,hiren,abb-mtrk-tmnsg 1 tab PO DAILY 11/19/18 04/01/19 History Family History Patient denies known family history of any psychiatric conditions. Substance Abuse History Patient denies routine use of or occasional experimentation with illicit substances. 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 Reports feeling safe within her home. 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 Patient is casually dressed, wearing matching pajama set. Patient appears appropriately groomed, with adequate hygiene. Shoulder-length hair appears clean. Eye Contact: good eye contact Motor Behavior: steady gait and station (Initially observed walking around room, filling bottles) and no abnormal motor movements Speech: normal rate/rhythm/volume of speech ([place] accent, no significant barriers to communication) Affect: euthymic affect (Smiling and brightening appropriately) and mood congruent with affect; no anxious affect (Appearing rather calm) Mood: + anxious mood (Reports mild anxiety, generalized to of ); no depressed mood Denies anxiety targeted to any particular situation; mild anxiety regarding of and returning home, but not to a particular event Thought Process: goal directed thought process, clear/coherent thought process and thought association intact Thought Content: reality based without delusions; no preoccupation (no longer focused on phototherapy requests) and no hopelessness Suicidal Thoughts: denies suicidal thoughts and denies suicidal intent Homicidal Thoughts: denies homicidal thoughts Hallucinations: no auditory hallucinations and no visual hallucinations Cognition: attention grossly intact and language grossly intact Insight: good insight Truss Designer ment: good judgement Vital Signs (Past 24 Hours): Last Vital Signs Temp 36.9 C 04/03/19 23:10 Pulse 78 04/03/19 23:10 Resp 16 04/03/19 23:10 BP 109/73 04/03/19 23:10 Pulse Ox 98 04/03/19 23:10 Review of Systems Constitutional: denied any physical concerns aside from pain/discomfort related to recent vaginal delivery Cardiovascular: denied Respiratory: denied Gastrointestinal: denied Neurological: denied Psychiatric: denies symptoms other than stated above Total of at least 10 systems reviewed, pertinent positives as above and in HPI. Results & Data Medications Administered Benzocaine (Dermoplast Pain Relieving [place]) 1 appln EXT PRN PRN PRN Reason: Perineal Discomfort Stop: 05/01/19 22:07 Last Admin: 04/02/19 04:33 Dose: 82.5 appln Documented by: [id number] Docusate Sodium (Colace) 100 mg PO DAILY@ [facility]UANJOSE Stop: 05/02/19 07:59 Last Admin: 04/04/19 08:43 Dose: 100 mg Documented by: [id number] Admin: 04/03/19 21:32 Dose: 100 mg Documented by: [id number] Admin: 04/03/19 08:41 Dose: 100 mg Documented by: [id number] Admin: 04/02/19 21:30 Dose: 100 mg Documented by: [id number] Admin: 04/02/19 08:47 Dose: 100 mg Documented by: [id number] Ibuprofen (Motrin) 600 mg PO Q4H PRN PRN Reason: Pain/BRADSHAW/Cramping/Fever Stop: 05/01/19 22:07 Last Admin: 04/02/19 05:48 Dose: 600 mg Documented by: [id number] Admin: 04/02/19 01:38 Dose: 600 mg Documented by: [id number] Prenat Multivit/[place]/Iron/Folic Ac ( Vitamin) 1 tab PO DAILY@08 [facility] Stop: 05/02/19 07:59 Last Admin: 04/04/19 08:43 Dose: 1 tab Documented by: [id number] Admin: 04/03/19 08:41 Dose: 1 tab Documented by: [id number] Admin: 04/02/19 08:47 Dose: 1 tab Documented by: [id number] Coding Level of Care Code 56977 U Intl Hosp Care Lvl 3
== END 2019-04-04 20:25 | disposition home or self-care (01) | DRG 807 ==
LOC: OPB 16:46 → 4S1 16:48 → 4S2 04-02 00:44